=== PATIENT | male | born 1970 | race Caucasian/White ===

== ENCOUNTER 2019-02-11 18:57 | Emergency (ER) | payer OTHER ==
[~2019-02-11] VITALS: Ht 198.1 cm; Wt 122.5 kg
[2019-02-11 19:04] VITALS: BP 163/93; Ht 198.1 cm; Wt 122.5 kg
== END 2019-02-11 22:19 | disposition home or self-care (01) ==
LOC: ED 18:57 → EDBD 18:57 → ED 22:19
DX: K42.9 Umbilical hernia without obstruction or gangrene (principal); Z98.890 Other specified postprocedural states